=== PATIENT | female | born 1960 ===

== ENCOUNTER 2019-01-26 09:51 | Emergency (ER) | payer SELFPAY ==
[~2019-01-26] VITALS: Ht 162.6 cm; Wt 96.0 kg
[2019-01-26 10:43] LABS: CHLORIDE 110 mEq/L (98-107)
[2019-01-26 10:45] LABS: BASOPHILS % 0.6 % (0.0-2.0); EOSINOPHILS % 1.4 % (0.0-5.0); HEMATOCRIT. 39.5 % (36.0-48.0); HEMOGLOBIN. 13.3 g/dL (12.0-16.0); LYMPHOCYTES % 29.4 % (20.0-50.0); MEAN CORPUSCULAR HEMOGLOBIN 30.3 pg (28.0-32.0); MEAN CORPUSCULAR VOLUME 90.3 fL (81.0-99.0); MEAN PLATELET VOLUME 9.4 fl (7.4-10.4); MONOCYTES % 5.8 % (2.0-8.0); NEUTROPHILS % 62.8 % (40.0-76.0); PLATELET 295 x1000/uL (130-400); RED BLOOD CELL COUNT 4.37 mill/uL (4.2-5.4); RED CELL DISTRIBUTION WIDTH 13.4 % (11.6-14.6)
[2019-01-26] MEDS ORDERED: OXYCODONE HCL/ACETAMINOPHEN 5/325MG TABLET PO ONE (11:45)
[2019-01-26] MEDS ORDERED: KETOROLAC 30MG/ML VIAL IV ONE (11:45)
[2019-01-26 12:17] VITALS: BP 146/63
== END 2019-01-26 12:17 | disposition home or self-care (01) ==
LOC: ER 09:51
DX: M54.9 Dorsalgia, unspecified (principal)
CPT/HCPCS: 36415; 71045; 80053; 83880; 84484; 85025; 93005; 96374; 99284; J1885